=== PATIENT | male | born 1945 | race Caucasian/White ===

== ENCOUNTER → 2020-03-01 10:50 | Outpatient (CLI) | payer MEDICARE, BC ==
[2013-09-02 08:34] VITALS: BMI 29.4
[~2020-03-01 10:50] MED LIST: ALLEGRA ALLERG180 MG PO; BAYER ASPIRIN325 MG PO; CINNAMON500 MG PO; COSOPT EYE DROPS5 ML EACH EYE; COZAAR100 MG PO; CRESTOR10 MG PO; ESTER-C 500 MG1 TAB PO; FISH OIL 1,2001 CA1 PO; GARLIC1 CAP PO; LYSINE500 MG PO; MULTIPLE VITAMI1 TA1 PO; NIASPAN500 MG PO; OSTEO-BIFLEX PO; OYSCO 500+D TAB1 TAB PO; PRILOSEC20 MG PO; RED YEAST RICE600 MG PO; TRAVATAN Z2.5 ML LEFT EYE
== END | disposition home or self-care (01) ==
LOC: D.HCCARDIO 10:50
PROVIDERS: ATTEND Internal Medicine Cardiovascular Disease
DX: I20.9 Angina pectoris, unspecified (principal)

== ENCOUNTER 2020-03-10 10:35 | Outpatient (CLI) | payer MEDICARE, BC ==
[~2020-03-10] VITALS: Ht 190.5 cm; Wt 107.5 kg
--- NOTE | ~2020-03-10 | HEMODYNAMI ---
PATIENT:DEBRA MARCELINO MEDICAL RECORD: [id number] : 47 LOCATION:[facility] ADMISSION DATE: 03/10/20 Generatedon:03/10/202013:38 Patient name: DEBRA MARCELINO Patient #: [id number] SSN: : 1945 Date of study: 03/10/2020 Page: Of Hemodynamic Procedure Report Patient Data Patient Demographics Procedure consent was obtained First Name: DEBRA Gender: Male Last Name: CHARI : 1945 Patient #: [id number] Age: 74 year(s) Race: Unknown Additional ID: [id number] Contact details [address]: [address] [place] [address] [place] State: [place] City: [place] Zip code: [address] Past Medical History Performed procedures and imaging results Date Procedure Procedure Results Comments Stress testing Positive->Intermediate with SPECT MPI risk Allergies Allergen Reaction Date Comments Reported Other allergy 03/10/2020 DIOVAN, HYDROCODONE , SIMCOR Admission Admission Data Admission Date: 03/10/2020 Admission Time: 10:35 Arrival Date: 03/10/2020 Arrival Time: 0:00 Height (in.): 74.8 BSA: 2.35 (m2) Height (cm.): 190 BMI: 29.64 (kg/m2) Weight (lbs.): 235.9 Weight (kg.): 107 Lab Results Lab Result Date: 03/10/2020 Lab Result Time: 0:00 Biochemistry Name Units Result Min Max BUN mg/dl 17 --(---*)-- 7 18 Creatinine mg/dl 1.1 --(--*-)-- 0.6 1.3 eGFR ml/min 70.54761 *-(----)-- 90 120 NONAFRICAN CBC Name Units Result Min Max Hematocrit % 44 --(*---)-- 42 54 Hemoglobin g/dl 14.4 --(*---)-- 13.5 17.5 Procedure Procedure Types Cath Procedure Diagnostic Procedure [facility] w/Coronaries FFR/IVUS FFR Initial Sedation Charges Moderate Sedation up to 30 minutes PCI Procedure Coronary Stent Coronary Stent Initial Hemochron ACT Test Procedure Description Procedure Date Procedure Date: 03/10/2020 Procedure Start Time: 13:03 Procedure End Time: 13:31 Procedure Staff Name Function Vineet Varela MD Performing Physician Krystina Fischer RN Nurse Aileen Luther RT Scrub [facility] RT Monitor Procedure Data Cath Procedure Fluoroscopy Diagnostic fluoroscopy Total fluoroscopy Time: 5.9 time: 5.9 min min Diagnostic fluoroscopy Total fluoroscopy dose: dose: 1344 mGy 1344 mGy Contrast Material Contrast Material Type Amount (ml) Isovue 300 110 Entry Location Entry Primary Successful Side Size Upsize Upsize Entry Closure Succes sful Closure Location (Fr) 1 (Fr) 2 (Fr) Remarks Device Remarks Femoral Right 5 Fr 6 Fr Exoseal artery Short Estimated blood loss: 10 ml Diagnostic catheters Device Type Used For End Catheter Placement MULTIPACK JL 4.0 5Fr Procedure catheter MULTIPACK 3DRC 5Fr Procedure catheter MULTIPACK Pigtail 5 Fr Procedure catheter Procedure Complications No complications Procedure Medications Medication Administration Route Dosage 0.9% NaCl I.V. 100 ml/hr Oxygen etCO2 Nasal cannula 2 l/min Lidocaine 2% added to field 20 Heparin Flush Bag added to field 2 bags (1000units/500ml NS) Versed I.V. 2 mg Fentanyl I.V. 50 mcg Heparin Bolus I.V. 5000 units Integrilin (Bolus I.V. 9.5 ml 2mg/ml) Integrilin (Bolus wasted 0.5 ml 2mg/ml) Plavix P.O. 600 mg Hemodynamics Rest BSA: 2.35 (m2) HGB: 14.4 (g/dl) O2 Consumption: Estimated: 265.63 (ml/min) O2 Co nsumption indexed: Estimated:113.03 (ml/min/m) Heart Rate: 64 (bpm) Pressure Samples Time Site Value (mmHg) Purpose Heart Use Rate(bpm) 13:09 LV 133/9,10 Snapshot 68 Gradients Valve Time Site Site Mean SEP/DFP Peak To Heart Use 1 2 (mmHg) (sec/min) Peak Rate (mmHg) (bpm) Aortic 13:10 LV AO 83 Snapshots Pre Cath Intra NCS Post Cath Vital Signs Time Heart Resp SPO2 etCO2 NIBP (mmHg) Rhythm Pain Sedation Rate (ipm) (%) (mmHg) Status Level (bpm) 12:51:37 59 19 96 27 142/82(116) NSR 0 (11) 10(A) , No pain 12:55:49 65 10 98 26.2 128/83(114) NSR 0 (11) 10(A) , No pain 13:00:48 68 19 98 22.4 Measuring NSR 0 (11) 10(A) , No pain 13:02:10 66 13 98 33.7 132/95(118) NSR 0 (11) 10(A) , No pain 13:06:22 62 13 99 34.4 144/74(110) NSR 0 (11) 10(A) , No pain 13:10:37 62 14 99 32.2 146/78(125) NSR 0 (11) 10(A) , No pain 13:15:32 68 18 98 27.7 131/75(106) NSR 0 (11) 10(A) , No pain 13:19:42 65 19 99 28.5 135/80(102) NSR 0 (11) 10(A) , No pain 13:23:54 62 15 99 28.5 140/75(111) NSR 0 (11) 10(A) , No pain 13:28:06 68 20 99 23.2 141/82(114) NSR 0 (11) 10(A) , No pain Medications Time Medication Route Dose Verified Delivered Reason Notes Effectiveness by by 12:53:23 0.9% NaCl I.V. 100 Vineet Hiltona used for ml/hr Nichole Amado procedure MD MARTIN 12:53:29 Oxygen etCO2 2 Vineet Hiltona used for Nasal l/min [facility] procedure cannula MD MARTIN 12:53:34 Lidocaine 2% added 20ml Vineet Manley for local to vial [facility] anesthetic field MD BRADSHAW 12:53:38 Heparin Flush added 2 Vineet Manley used for Bag to bags [facility] procedure (1000units/500ml field MD BRADSHAW NS) 13:01:18 Versed I.V. 2 mg Vineet Hiltona for sedation [facility] Julio Fischer MD, RN 13:01:35 Fentanyl I.V. 50 Vineet Krystina for sedation mcg [facility] Julio Fischer MD, RN 13:14:09 Heparin Bolus I.V. 5000 Vineet Flaherty for verif ied units St Julio Fischer anticoagulation with Dr. BRADSHAW RN [place] 13:14:23 Integrilin I.V. 9.5 Vineet Flaherty for (Bolus 2mg/ml) ml [facility] Julio Fischer antiplatelet RN therapy 13:14:34 Integrilin wasted 0.5 Vineet Flaherty for (Bolus 2mg/ml) ml [facility] Julio Fischer antiplatelet RN therapy 13:14:42 Plavix P.O. 600 Vineet Fla[address] for mg [facility] Julio Fischer antiplatelet RN therapy Procedure Log Time Note 12:08:26 Informed consent obtained and on chart 12:08:48 Procedure Status Elective Heart Cath (OP). 12:08:50 Time tracking: Regular hours (M-F 7:00 - 5:00) 12:08:54 Plan of Care:Hemodynamics will remain stable., Cardiac rhythm will remain stable., Comfort level will be maintained., Respiratory function will remain adequate., Patient/ family verbilizes understanding of procedure., Procedure tolerated without complication., Recovers from procedure without complications.. 12:09:06 H&P Date Dictated: 02/23/2020 Within 30 days and on chart., H&P Addendum completed by physician on day of procedure. (MUST COMPLETE FOR ALL OUTPATIENTS). 12:09:36 Patient allergic to Other allergyDIOVAN, HYDROCODONE , SIMCOR 12:09:47 Patient Height : 74.8 inches 12:09:51 Patient Weight : 235.9 lbs 12:09:54 Arrival Date: 03/10/2020 12:00:00 AM 12:20:17 Lab Result : BUN 17 mg/dl 12:20:17 Lab Result : eGFR NONAFRICAN 70.41126 ml/min 12:20:17 Lab Result : Creatinine 1.1 mg/dl 12:20:17 Lab Result : Hemoglobin 14.4 g/dl 12:20:17 Lab Result : Hematocrit 44 % 12:23:55 Stress Test: yes; abnormal INFERIOR 12:36:22 Miranda Bridges RT(R) sent for patient. Start room use. 12:50:21 Patient received from Pre/Post Procedure Room to CCL 1 Alert and oriented. Tansferred to table in Supine position. 12:50:22 Warm blankets applied, and roverto hugger turned on for patient comfort. 12:50:22 Correct patient and procedure confirmed by team. 12:50:23 ECG and BP/O2 sat monitors applied to patient. 12:50:24 Vital chart was started 12:50:26 Baseline sample Acquired. 12:50:31 Rhythm: sinus bradycardia 12:50:33 Full Disclosure recording started 12:50:35 Pre-procedure instructions explained to patient. 12:50:35 Pre-op teaching completed and patient verbalized understanding. 12:50:52 Baseline sample Acquired. 12:50:58 Family in patients room. 12:51:00 Is patient on blood thinner?No 12:51:02 Patient diabetic? No. 12:51:05 Previous problem with sedation/anesthesia? No ? 12:51:07 Snore? Yes 12:51:08 Sleep apnea? No 12:51:09 Deviated septum? No 12:51:10 Opens mouth fully? Yes 12:51:11 Sticks out tongue? Yes 12:51:12 Airway obstruction? No ? 12:51:14 Dentures? No ? 12:51:16 Pre procedure: right dorsailis pedis pulse 1+ Palpable, but thready & weak; easily obliterated 12:51:18 Modified Miguel's test Ulnar > 7 seconds. 12:51:24 Patient pain scale 0/10 ?. 12:51:32 IV patent on arrival in right antecubital with 0.9% NaCl at [facility]. 12:51:34 Lab results completed and on chart. 12:51:38 Right groin area was prepped with chlora-prep and draped in sterile fashion 12:51:38 Alarms reviewed by R. N. 12:51:39 Sharps counted by scrub and verified by R.N. 12:52:26 Use device set Femoral Dx 12:52:27 ACIST Syringe (45639) opened to sterile field. 12:52:27 Bag Decanter (2002S) opened to sterile field. 12:52:28 ACIST Hand Control (60854) opened to sterile field. 12:52:29 ACIST Manifold (73859) opened to sterile field. 12:52:29 Tegaderm 4 x 4 (1626W) opened to sterile field. 12:52:30 Medline Cath Pack ([id number]) opened to sterile field. 12:52:31 DIAGNOSTIC Multipack 5Fr catheter set (PX4971) opened to sterile field. 12:52:34 SHEATH 5FR [place] (UQD526) opened to sterile field. 12:52:34 EMERALD Guide Wire (692-956) opened to sterile field. 12:53:23 0.9% NaCl 100 ml/hr I.V. was administered by Krystina Fischer RN; used for procedure; Verbal order read back and verified. 12:53:29 Oxygen 2 l/min etCO2 Nasal cannula was administered by Krystina Fischer RN; used for procedure; Verbal order read back and verified. 12:53:34 Lidocaine 2% 20ml vial added to field was administered by Vineet Varela MD; for local anesthetic; Verbal order read back and verified. 12:53:38 Heparin Flush Bag (1000units/500ml NS) 2 bags added to field was administered by Vineet Varela MD; used for procedure; Verbal order read back and verified. 13:00:17 --------ALL STOP TIME OUT------ 13:00:17 Final Timeout: patient, procedure, and site verified with staff and physician. All members of the team are in agreement. 13:00:18 Right groin site verified by team. 13:00:21 Fire Safety Assessment: A--An alcohol-based skin anteseptic being used preoperatively., C--Open oxygen or nitrous oxide is being used., D--An ESU, laser, or fiber-optic light is being used. 13:00:24 Physical assessment completed. ASA score P 2 - A patient with mild systemic disease as per Vineet Vareal MD. 13:00:27 2) 60-89 Mildly reduced kidney function, and other findings (as for stage 1) point to kidney disease. 13:00:30 Maximum allowable contrast dose (3.7 X eGFR X 0.75)194 ml. 13:00:34 Sedation plan: IV Moderate Sedation Medication:Versed, Fentanyl 13:01:18 Versed 2 mg I.V. was administered by Krystina Fischer RN; for sedation; Verbal order read back and verified. 13:01:35 Fentanyl 50 mcg I.V. was administered by Krystina Fischer RN; for sedation; Verbal order read back and verified. 13:02:46 Procedure started. 13:02:48 Zero performed for pressure channel P1 13:03:03 Local anesthetic to right femoral artery with Lidocaine 2% by Vineet Varela MD.INITIAL ACCESS ONLY 13:03:50 A 5 Fr sheath was inserted into the Right Femoral artery 13:04:22 A MULTIPACK JL 4.0 5Fr catheter was advanced over the wire and used for Procedure. 13:07:18 LCA angiography performed. 13:07:23 Catheter removed. 13:08:04 A MULTIPACK 3DRC 5Fr catheter was advanced over the wire and used for Procedure. 13:08:28 RCA angiography performed. 13:08:29 Catheter removed. 13:08:46 A MULTIPACK Pigtail 5 Fr catheter was advanced over the wire and used for Procedure. 13:09:16 LV gram done using ANDRADE 13:09:18 Injector settings: Ml/sec: 10, Volume: 20, 13:09:48 LV hemodynamics recorded. 13:10:07 EF : 55 % 13:10:08 Catheter removed. 13:10:10 Proceeding to intervention. 13:10:40 SHEATH 6FR [place] (ZIP870) opened to sterile field. 13:10:41 INFLATOR Merit BasixCompak (CG9034) opened to sterile field. 13:10:41 GUIDE 6FR XBLAD 3.5 catheter ([id number]) opened to sterile field. 13:10:42 Olivet Verrata Plus pressure wire (34962U) opened to sterile field. 13:10:51 Sheath upsized to a 6 Fr Short. 13:11:59 WHISPER 300cm guide wire ([id number]) opened to sterile field. 13:12:55 6 Fr XBLAD 3.5 guide catheter was inserted over the wire 13:14:09 Heparin Bolus 5000 units I.V. was administered by Krystina Fischer RN; for anticoagulation; verified with Dr. Neville Verbal order read back and verified. 13:14:23 Integrilin (Bolus 2mg/ml) 9.5 ml I.V. was administered by Krystina Fischer RN; for antiplatelet therapy; Verbal order read back and verified. 13:14:29 FFR/IFR wire advanced. 13:14:34 Integrilin (Bolus 2mg/ml) 0.5 ml wasted was administered by Krystina Fischer RN; for antiplatelet therapy; Verbal order read back and verified. 13:14:42 Plavix 600 mg P.O. was administered by Krystina Fischer RN; for antiplatelet therapy; Verbal order read back and verified. 13:16:09 Wire advanced across lesion. 13:16:24 Circ lesion measured at CIRC with IFR 13:19:32 Wire removed. 13:19:45 WHISPER 300 wire advanced. 13:21:04 Wire advanced across lesion. 13:22:09 Pre PCI Site: [place] LAD has 80% stenosis. 13:24:18 Place stent Inflation Number: 1 A ALISSA OTW 3.0 x 22 stent ([id number]) was prepped and advanced across the Mid LAD . The stent was deployed at 14 THANIA for 0:00 (min:sec) . 13:25:09 Stent catheter was removed intact over wire. 13:25:09 Wire removed. 13:25:10 Guide catheter removed. 13:25:34 EXOSEAL 6Fr (EX600) opened to sterile field. 13:27:57 Sheath removed intact; hemostasis achieved with Exoseal to the Right Femoral artery. 13:27:59 Procedure ended.(Physican Out) 13:28:11 Fluoroscopy time 05.90 minutes. 13:28:18 Flurop Dose total: 1344 13:28:18 Fluoroscopy dose: 1344 mGy 13:28:27 Dose Area Product 76432 mGy/cm. 13:28:30 Contrast amount:Isovue 300 110ml. 13:28:36 Maximum allowable dose exceeded? No. 13:28:37 Sharps counted by scrub and verified by R.N. 13:28:41 Post-op/insertion site Right Femoral artery dressed using a 4 x 4 and Tegaderm. 13:29:05 Post-procedure physical assessment completed. ASA score P 2 - A patient with mild systemic disease as per Vineet Varela MD. 13:29:08 Post procedure rhythm: sinus rhythm 13:29:11 Estimated blood loss: 10 ml 13:29:12 Post procedure instruction explained to patient.Patient verbalizes understanding. 13:29:12 Patient needs reinforcement of post procedure teaching. 13:29:21 ACT drawn and resulted at 273 seconds. (normal therapeutic range 180-240 seconds). 13:30:35 Procedure type changed to Cath procedure, Diagnostic procedure, LHC, LHC w/Coronaries, FFR/IVUS, FFR Initial, Sedation Charges, Moderate Sedation up to 30 minutes, PCI procedure, Coronary Stent, Coronary Stent Initial, Hemochron ACT Test 13:31:20 Procedure and supply charges have been captured, reviewed, submitted and are correct. 13:31:24 Procedure Complication : No complications 13:31:26 Vital chart was stopped 13:31:28 [facility] Findings: MVD- PCI performed (see procedure note) 13:31:30 Operative report dictated upon procedure completion. 13:31:30 See physician's report for complete and final results. 13:31:32 Report given to Pre/Post Procedure Room. 13:31:37 Patient transfered to Pre/Post Procedure Room with Bed. 13:31:43 Procedure ended. 13:31:43 Full Disclosure recording stopped 13:31:46 End room use (Document Last) 13:36:52 End room use (Document Last) 13:37:13 End room use (Document Last) Intervention Summary Intervention Notes Time ActionType Lesion and Equipment Action# Pressure Duration Attributes Used 13:24:18 Place stent Mid LAD ALISSA OTW 3.0 1 14 00:00 x 22 stent ([id number]) Device Usage Item Name Manufacture Quantity Catalog [facility] Lot# / Number Charge Number Stock Stock Serial# Code ACIST Syringe Acist 1 70241 850635 968630 629094 20 (87944) Medical Systems Inc Bag Decanter Microtek 1 2001S 253439 06653 142947 5 (2001S) Medical Inc. ACIST Hand Acist 1 30427 611511 201518 063416 5 Control Medical (62567) Systems Inc ACIST Acist 1 79956 886735 704758 282931 5 Manifold Medical (67847) Systems Inc Tegaderm 4 x 3M 1 1626W 283868 937406 479391 5 4 (1626W) Medline Cath Medline 1 [id number] 626901 66412 463239 5 Pack ([id number]) DIAGNOSTIC Cardinal 1 XG8921 051330 78187 772535 30 Multipack 5Fr Health catheter set (NZ3004) SHEATH 5FR Terumo 1 YBD884 524452 477639 947106 5 [place] (XLG265) EMERALD Guide Cardinal 1 502455 570766 144837 218661 5 Wire Health (502-486) MULTIPACK JL Cardinal 1 270484 5 4.0 5Fr Health catheter MULTIPACK Cardinal 1 550713 5 3DRC 5Fr Health catheter MULTIPACK Cardinal 1 457591 5 Pigtail 5 Fr Health catheter SHEATH 6FR Terumo 1 AXA940 072728 525817 600883 40 [place] (EBH521) INFLATOR Merit 1 FK1988 069408 083984 078622 15 [facility] Medical BasixCompak (AE2189) GUIDE 6FR Cardinal 1 53526144 912512 193495 985458 10 XBLAD 3.5 Health catheter (75037597) Olivet Olivet 1 09392J 763292 992312098 539475 5 Verrata Plus pressure wire (08472M) WHISPER 300cm Escobar 1 [id number] 741594 244984 470778 5 guide wire Vascular (0464146NM) ALISSA OTW 3.0 Medtronic 1 [id number] 143671 7184266 773587 5 [id number] x 22 stent ([id number]) EXOSEAL 6Fr Cardinal 1 EX600 704488 740595 509283 10 (EX600) Health Signature Audit [place] Stage Time Signature Unsigned Intra-Procedure 03/10/2020 Miranda Bridges 1:36:52 PM RT(R) Intra-Procedure 03/10/2020 Krystina Fischer 1:37:13 PM RN Intra-Procedure 03/10/2020 Vineet Gonzalez 1:38:11 PM Julio BRADSHAW [facility] [address] [place] [address]
[2020-03-10] MEDS ORDERED: FLOVENT HFA 11012 GM INH (11:08)
[2020-03-10] MEDS ORDERED: BLACK ELDERBERRY PO (11:08)
[2020-03-10 11:28] VITALS: BP 136/77; Ht 190.5 cm; Wt 107.5 kg
[2020-03-10 11:46] LABS: ALT (SGPT) 21 U/L (10-68); CALC OSMOLALITY 268 mosm/kg (275-300); CALCIUM 8.7 mg/dL (8.5-10.1); CARBON DIOXIDE 25.8 mmol/L (21.0-32.0); CHLORIDE - SERUM 100 mmol/L (98-107); CHOL - HDL RATIO 6.5 ratio (2.3-4.9); CHOLESTEROL, TOTAL 241 mg/dL (0-200); CREATININE - SERUM 1.1 mg/dL (0.6-1.3); GLUCOSE 131 mg/dL (74-106); HDL CHOLESTEROL 37 mg/dL (32-96); POTASSIUM - SERUM 4.6 mmol/L (3.5-5.1); SODIUM 132 mmol/L (136-145); TRIGLYCERIDE 497 mg/dL (30-200); UREA NITROGEN 17 mg/dL (7-18); eGFR NON AFRICAN AMERICAN 70 mL/min (90-120)
[2020-03-10 12:08] LABS: HEMOGLOBIN 14.4 g/dL (13.5-17.5); LYMPHOCYTES 40.2 % (15-50); MCH 29.5 pg (26.0-34.0); MCHC 32.7 g/dL (31.0-37.0); MCV 90.2 fL (80.0-100.0); MEAN PLATELET VOLUME 10.1 fL (7.4-10.4); NEUTROPHILS 52.2 % (40-80); PLATELET COUNT 196 10x3/uL (130-400); RBC 4.88 10x6/uL (4.20-6.10); RDW 13.2 % (11.5-14.5); WBC 8.3 10x3/uL (4.8-10.8)
[2020-03-10] MEDS ORDERED: PLAVIX75 MG PO (13:43)
[2020-03-10] MEDS ORDERED: BAYER CHEWABLE81 MG PO (13:43)
--- NOTE | 2020-03-10 13:44 | NUR ---
DR. CORBETT IN TO UPDATE . NEW ORDERS FOR PLAVIX AND ASA REC'D, NO ORDER FOR STATIN OR BETA BERTRAM PER DR. CORBETT.
--- NOTE | 2020-03-10 13:45 | NUR ---
PT REC'D TO ROOM 4 VIA STRETCHER FROM [employer]. MONITORS ESTAB. AT BS. SEE FRUCTOSE LOADER, ALARMS ON AND C/L IN REACH.
--- NOTE | 2020-03-10 14:00 | NUR ---
R GROIN SITE SOFT, NO S/S BLEEDING OR SWELLING. PULSES PALP, R LEG/FOOT WARM, BRISK CAP REFILL. PT TAKING ICE CHIPS. AT BS. ALARMS ON AND C/L IN REACH.
--- NOTE | 2020-03-10 14:15 | NUR ---
PT RESTING QUIELTY. R GROIN SITE SOFT, C/D/I. VSS. PULSES PALP. C/L IN REACH.
--- NOTE | 2020-03-10 14:45 | NUR ---
R GROIN SITE SOFT, C/D/I. NO S/S BLEEDING OR HEMATOMA. VSS. PULSES PALP. C/L IN REACH.
--- NOTE | 2020-03-10 15:00 | NUR ---
R GROIN SITE SOFT, C/D/I. VSS. PT RESTING QUIETLY, DENIES NEEDS. PULSES PALP. C/L IN REACH.
--- NOTE | 2020-03-10 15:30 | NUR ---
R GROIN SITE SOFT, C/D/I, NO S/S BLEEDING OR HEMATOMA. PULSES PALP. AT BS. PT DENIES NEEDS.
--- NOTE | 2020-03-10 16:00 | NUR ---
VSS. R GROIN SITE SOFT, C/D/I. NO S/S BLEEDING OR HEMATOMA. ALARMS ON AND C/L IN REACH.
--- NOTE | 2020-03-10 16:09 | OP ---
PATIENT NAME: DEBRA MARCELINO MEDICAL RECORD: [id number] :47 LOCATION:[facility] ADMISSION DATE: SURGEON: GEGE CORBETT MD DATE OF OPERATION: 03/10/2020 PROCEDURE: Left heart catheterization, selective coronary angiography, right femoral artery approach, plus IFR to circumflex, plus PTCA stenting to the LAD FINDINGS: Left ventriculography in 30-degree ANDRADE view: Normal wall motion and normal systolic function. CORONARY ANATOMY: LEFT MAIN: Left main is free of disease. LAD: Has a long diffuse 80% stenosis from the first diagonal to septal senior administrator support. CIRCUMFLEX: Has a questionable stenosis in its mid portion. RIGHT CORONARY ARTERY: Codominant system, free of disease. With questionable intermediate stenosis in the circumflex, IFR wire was performed and this was normal at 0.97. DESCRIPTION OF PROCEDURE: After a 6-Yoruba sheath was placed in the right femoral artery, an XB LAD guiding catheter provided good guide catheter support followed by 300 cm whisper wire. Stent deployed was a 3.0 x 22 [place] drug-eluting stent up to 14 atmospheres for 45 seconds. Final angiography shows excellent resolution of diffuse 80% stenosis. No significant residual. CHRISTINA flow was 3 throughout the procedure. Heparin and Integrilin were used during the case. Sheath was closed with ExoSeal device. Plavix loaded in the lab. TRANSINT:[id number] Voice Confirmation ID: [id number] DOCUMENT ID: [id number] GEGE CORBETT MD at 1609 CC: [id number] DICTATION DATE: 03/10/20 1332 LUNG GUN OPERATOR: 03/10/20 1447 [facility] [address] [id number]
--- NOTE | 2020-03-10 16:19 | NUR ---
R GROIN SITE SOFT, NO S/S BLEEDING OR SWELLING. PULSES PALP. HOB ELEVATED. SANDWICH TRAY AND COLA PROVIDED PER PT REQUEST.
--- NOTE | 2020-03-10 17:00 | NUR ---
R GROIN SITE SOFT, C/D/I, NO S/S BLEEDING OR SWELLING. ALL DISCHARGE INSTRUCTIONS, INCLUDING NEW PRESCRIPTIONS, RESTRICTIONS AND FOLLOW UP APPT, REVIEWED WITH PT AND HIS .
--- NOTE | 2020-03-10 17:09 | NUR ---
R GROIN SITE SOFT, C/D/I. PIV D/C'D INTACT, DSG APPLIED. PT ALLOWED UP TO GET DRESSED AND GO TO BR INDEPENDENTLY. HELPING.
--- NOTE | 2020-03-10 17:25 | NUR ---
PT TEACHING PAPERWORK ON PLAVIX GIVEN TO PT. PT D/C'D VIA WC WITH ALL BELONGINGS AND PAPERWORK.
== END 2020-03-10 17:25 | disposition home or self-care (01) ==
LOC: D.CATH 10:35
PROVIDERS: ATTEND Internal Medicine Interventional Cardiology
DX: I25.119 Atherosclerotic heart disease of native coronary artery with unspecified angina pectoris (principal); E78.5 Hyperlipidemia, unspecified; R09.89 Other specified symptoms and signs involving the circulatory and respiratory systems; I10 Essential (primary) hypertension
CPT/HCPCS: 93458; 93571; C9600